=== PATIENT | female | born 1985 | race American Indian/Alaskan Native ===

== ENCOUNTER 2018-09-09 18:45 | Emergency (ER) | payer OTHER ==
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
[2018-09-09 19:28] LABS: Basophils # (Auto) 0.1 K/mm3 (0.0-0.1); Basophils % (Auto) 0.6 % (0.0-1.8); Eosinophils # (Auto) 0.1 K/mm3 (0.0-0.4); Eosinophils % (Auto) 1.3 % (0.0-4.3); Hematocrit 39.3 % (30.3-42.9); Hemoglobin 13.2 gm/dl (10.1-14.3); Lymphocytes # (Auto) 2.5 K/mm3 (1.2-5.4); Lymphocytes % (Auto) 28.2 % (13.4-35.0); Mean Corpuscular HGB Conc 34 % (30-34); Mean Corpuscular Volume 91 fl (79-97); Monocytes # (Auto) 0.6 K/mm3 (0.0-0.8); Platelet Count 264 K/mm3 (140-440); Red Blood Count 4.31 M/mm3 (3.65-5.03); Red Cell Distribution Width 13.1 % (13.2-15.2)
[2018-09-09 19:45] LABS: BUN/Creatinine Ratio 11; Blood Urea Nitrogen 10 mg/dL (7-17); Calcium 9.2 mg/dL (8.4-10.2); Hemolysis Index 4
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
[2018-09-09] MEDS ORDERED: FLEXERIL PO ONE (21:08)
[2018-09-09] MEDS ORDERED: IBUPROFEN PO ONE (21:08)
[2018-09-09] MEDS ORDERED: NORCO 5/325 PO ONE (21:08)
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
[2018-09-09 21:12] VITALS: BP 113/70
== END 2018-09-09 21:16 | disposition home or self-care (01) ==
LOC: ED 18:45
DX: M79.18 Myalgia, other site (principal); M54.5 Low back pain; M54.2 Cervicalgia
CPT/HCPCS: 36415; 72040; 72100; 80048; 84703; 85025

== ENCOUNTER 2019-05-17 08:21 | Emergency (ER) | payer SELFPAY ==
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
[2019-05-17] MEDS ORDERED: predniSONE 20 MG TAB PO ONE (09:45)
--- NOTE | 2019-05-17 10:19 | XRay Report ---
CHEST 2 VIEWS INDICATION: Cough/chest congestion. COMPARISON: None FINDINGS: Support devices: None. Heart: Within normal limits. Lungs/pleura: No acute air space or interstitial disease. No pneumothorax. Additional findings: None. IMPRESSION: Normal chest x-ray Signer Name: Conrad Harvey Jr, MD Signed: 05/17/2019 10:14 AM Workstation Name: [id number]
[2019-05-17 11:06] VITALS: BP 125/71
== END 2019-05-17 10:57 | disposition home or self-care (01) ==
LOC: ED 08:21
DX: J20.8 Acute bronchitis due to other specified organisms (principal); J01.90 Acute sinusitis, unspecified; Z79.899 Other long term (current) drug therapy; Z98.890 Other specified postprocedural states
CPT/HCPCS: 71046; 99283; J7512